=== PATIENT | female | born 1955 | race Caucasian/White ===

== ENCOUNTER 2016-08-12 22:36 | Emergency (ER) | payer OTHER ==
[~2016-08-12] VITALS: Ht 157.5 cm; Wt 82.0 kg
[2016-08-12 23:00] VITALS: Ht 157.5 cm; Wt 82.0 kg
[2016-08-12] MEDS ORDERED: CARV25TA79 PO (23:19)
[2016-08-12] MEDS ORDERED: SPIR25TA PO (23:19)
[2016-08-12] MEDS ORDERED: METF1000 PO (23:20)
[2016-08-12] MEDS ORDERED: SITA100T8 PO (23:20)
[2016-08-12] MEDS ORDERED: CLOP75TA27 PO (23:20)
[2016-08-12] MEDS ORDERED: GLIM4TAB55 PO (23:21)
[2016-08-12] MEDS ORDERED: MECL-77 PO (23:21)
[2016-08-12] MEDS ORDERED: ALBU2.5V3 NEB (23:22)
[2016-08-12] MEDS ORDERED: LANT3I SC (23:22)
[2016-08-12] MEDS ORDERED: ALBU18HF INHALATION (23:22)
[2016-08-13] MEDS ORDERED: SODIUM CHLORIDE 0.9% 1L BAG IV* STA (00:11)
[2016-08-13] MEDS ORDERED: ALBUTEROL 0.5% (NEB) 2.5 MG/0.5 ML AMP INH STA ×2 (00:11→02:10)
[2016-08-13] MEDS ORDERED: CEFTRIAXONE 1 GM/50 ML (PMX) 50 ML IVPB ONE (00:30)
[2016-08-13] MEDS ORDERED: IBUPROFEN 600 MG TAB PO ONE (00:30)
[2016-08-13] MEDS ORDERED: AZITHROMYCIN 500MG/NS (PMX) 250 ML IVPB ONE (00:30)
--- NOTE | 2016-08-13 00:47 | RADRPT ---
PROCEDURE: XR Chest. CLINICAL INDICATION: Possible sepsis. TECHNIQUE: Portable AP upright view of the chest was obtained. COMPARISON: None. FINDINGS: The cardiomediastinal silhouette is within upper normal limits. The lungs are clear. There is no e vidence for pleural effusion, pneumothorax or pulmonary vascular congestion. The osseous structures are intact with no evidence for acute abnormality. [facility] the exam. RPTAT:HJJR IMPRESSION: No evidence for acute intrathoracic pathology. Physician Joss Date Time Electronically viewed and signed by Physician Joss on 08/13/2016 00:47 JR/
[2016-08-13 01:02] LABS: ALBUMIN 4.3 g/dl (3.3-4.9); CHLORIDE 98 mmol/L (97-110)
[2016-08-13 01:03] LABS: POTASSIUM 4.4 mmol/L (3.5-5.1); SODIUM 140 mmol/L (135-144)
[2016-08-13 01:05] LABS: ALANINE AMINOTRANSFERASE 29 IU/L (13-69); ALBUMIN/GLOBULIN RATIO 1.43; ALKALINE PHOSPHATASE 113 IU/L (42-121); ANION GAP 19 (8-16); ASPARTATE AMINO TRANSFERASE 17 IU/L (15-46); BILIRUBIN,INDIRECT 0.3 mg/dl (0-1.1); BILIRUBIN,TOTAL 0.3 mg/dl (0.2-1.3); BLOOD UREA NITROGEN 10 mg/dl (7-20); CARBON DIOXIDE 27 mmol/L (21-31); CREATININE 0.82 mg/dl (0.44-1.00); GLUCOSE 175 mg/dl (70-220); TOTAL PROTEIN 7.3 g/dl (6.1-8.1)
[2016-08-13 01:06] LABS: CALCIUM 9.9 mg/dl (8.4-10.2)
[2016-08-13 01:14] LABS: B-TYPE NATRIURETIC PEPTIDE 125 PG/ML (0-125)
[2016-08-13 01:18] LABS: TROPONIN-I < 0.012 ng/ml (0.00-0.12)
[2016-08-13 01:20] LABS: RED BLOOD COUNT 5.32 10^6/ul (4.20-5.40); UNCORRECTED WBC 12.3 10^3/ul (4.8-10.8); WHITE BLOOD COUNT 12.3 10^3/ul (4.8-10.8)
[2016-08-13 01:21] LABS: BASOPHILS % 0.5 % (0.0-2.0); EOSINOPHILS % 5.6 % (0.0-7.0); HEMATOCRIT 45.8 % (37.0-47.0); INR 0.96; LYMPHOCYTES # 1.3 10^3/ul (0.8-2.9); LYMPHOCYTES % 10.2 % (15.0-51.0); MEAN CORPUSCULAR HEMOGLOBIN 28.2 pg (29.0-33.0); MEAN CORPUSCULAR HGB CONC 32.8 g/dl (32.0-37.0); MEAN CORPUSCULAR VOLUME 86.1 fl (82.0-101.0); MEAN PLATELET VOLUME 10.4 fl (7.4-10.4); MONOCYTES % 5.1 % (0.0-11.0); NEUTROPHIL # 9.6 10^3/ul (1.6-7.5); NEUTROPHILS % 78.3 % (39.0-77.0); PARTIAL THROMBOPLASTIN TIME 27.8 Sec (25.0-35.0); PLATELET COUNT 276 10^3/UL (140-440); PROTIME 12.8 Sec (12.2-14.2); RED CELL DISTRIBUTION WIDTH 39.8 % (11.5-14.5)
[2016-08-13 01:22] LABS: BASOPHIL # 0.1 10^3/ul (0.0-0.1); EOSINOPHILS # 0.7 10^3/ul (0.0-0.5); MONOCYTE # 0.6 10^3/ul (0.3-0.9)
[2016-08-13] MEDS ORDERED: OSELTAMIVIR 75 MG CAP PO ONE (02:00)
[2016-08-13] MEDS ORDERED: predniSONE 20 MG TAB PO ONE (02:00)
--- NOTE | 2016-08-13 02:09 | ERA ---
ER Documentation Chief Complaint Date/Time DATE: 08/13/16 TIME: 02:03 Chief Complaint sob w/ cough x 10 days, progressing, now abd bloating, diarrhea x 1 HPI 60-year-old woman brought in by family members for complaints of cough and shortness of breath 1 week. She has had tactile fevers at home and denies recent antibiotic use. Patient states she does have a history of asthma and has been using her albuterol pump at home without relief. She denies chest pain , no calf or leg swelling, no vomiting or diarrhea, no headache or blurry vision. Patient denies recent long distance travel or previous blood clots. ROS All systems reviewed and are negative except as per history of present illness. Medications Home Meds Reported Medications Albuterol Sulfate* (Albuterol Sulfate* Neb) 0.083%-3 Ml Neb, 2.5 MG NEB Q3H Y for WHEEZING AND SOB, #30 VIAL 08/12/16 Albuterol Sulfate* (Ventolin HFA*) 18 Gm Hfa.aer.ad, 2 PUFF INHALATION Q6H, #1 INHALER 08/12/16 Insulin Glargine* (Lantus*) 100 Unit/Ml Soln, 40 UNIT SC QHS, #1 VIAL 08/12/16 Glimepiride* (Amaryl*) 4 Mg Tablet, 4 MG PO WITH BREAKFAST DINNE, TAB 08/12/16 Meclizine Hcl* (Meclizine Hcl*) 25 Mg Tablet, 25 MG PO DAILY Y for DIZZINESS, TAB 08/12/16 Metformin Hcl* (Metformin Hcl*) 1,000 Mg Tablet, 1000 MG PO WITH BREAKFAST DINNE , #60 TAB 08/12/16 Sitagliptin* (Januvia*) 100 Mg Tablet, 100 MG PO DAILY, #30 TAB 08/12/16 Clopidogrel Bisulfate (Clopidogrel) 75 Mg Tablet, 75 MG PO DAILY, #30 TAB 08/12/16 Carvedilol* (Carvedilol*) 25 Mg Tablet, 25 MG PO BID, #60 TAB 08/12/16 Spironolactone* (Aldactone*) 25 Mg Tablet, 25 MG PO DAILY, #30 TAB 08/12/16 Allergies Allergies: Coded Allergies: No Known Drug Allergies (Verified Allergy, Unknown, 08/12/16) PMhx/Soc Obesity, diabetes mellitus, hypertension, asthma, dyslipidemia, coronary artery disease, previous coronary artery stents, congestive heart failure Anesthesia Reaction: No Hx Neurological Disorder: No Hx Psychiatric Problems: No Hx Miscellaneous Medical Probl: Yes (high cholesterol, diabetes) Hx Alcohol Use: No Hx Substance Use: No Hx Tobacco Use: No Smoking Status: Never smoker FmHx Family History: coronary disease, No diabetes Physical Exam Vitals Vital Signs Date Time Temp Pulse Resp B/P Pulse Ox O2 Delivery O2 Flow Rate FiO2 08/13/16 02:15 100 30 92 Nasal Cannula 2.0 28 08/13/16 01:59 99.2 08/13/16 00:15 92 34 95 Nasal Cannula 28 08/12/16 23:04 Nasal Cannula 08/12/16 23:00 100.1 93 24 150/76 96 Physical Exam GENERAL: Well-developed, well-nourished, well-hydrated, in no apparent distress , looks nontoxic in appearance HEENT: Moist mucous membranes, pink conjunctiva, no cervical spine tenderness or step-off deformities, no goiter, no jaundice or icterus, extraocular movements intact without pain. No submandibular induration, and no pharyngeal erythema NEURO: Alert and oriented 3, cranial nerves II through XII intact bilaterally, pupils equal round reactive to light, no focal deficits or facial asymmetry, sensation intact distally Strength 5/5 in upper and lower extremities bilaterally CARDIAC: Regular rate and rhythm, no murmurs rubs or gallops LUNGS: Bilateral wheezing, no crackles or stridor ABDOMEN: Soft nontender, no guarding, no rigidity, no rebound, no psoas sign no obturator sign. Normoactive bowel sounds SKIN: Warm and dry to touch, no abrasions, contusions, or hematomas, no lacerations, no ecchymosis, no target lesions, and without ulcers EXTREMITIES: No clubbing cyanosis or edema, calves are bilaterally symmetrical, no Homans sign, no popliteal cord sign. Distal pulses equal and bilateral PSYCH: Normal affect without agitation or irritability Result Diagram: 08/13/16 0002 08/13/16 0002 Results 24 hrs Laboratory Tests Test 08/13/16 00:02 Activated Partial Thromboplast Time 27.8Sec Alanine Aminotransferase (ALT/SGPT) 29IU/L Albumin 4.3g/dl Albumin/Globulin Ratio 1.43 Alkaline Phosphatase 113IU/L Anion Gap 19 Aspartate Amino Transf (AST/SGOT) 17IU/L B-Type Natriuretic Peptide 125PG/ML Basophils # 0.110^3/ul Basophils % 0.5% Blood Urea Nitrogen 10mg/dl Calcium Level 9.9mg/dl Carbon Dioxide Level 27mmol/L Chloride Level 98mmol/L Creatinine 0.82mg/dl Direct Bilirubin 0.00mg/dl Eosinophils # 0.710^3/ul Eosinophils % 5.6% Globulin 3.00g/dl Glucose Level 175mg/dl Hematocrit 45.8% Hemoglobin 15.0g/dl INR International Normalized Ratio 0.96 Indirect Bilirubin 0.3mg/dl Lactic Acid Level 2.6mmol/L Lipase 17U/L Lymphocytes # 1.310^3/ul Lymphocytes % 10.2% Mean Corpuscular Hemoglobin 28.2pg Mean Corpuscular Hemoglobin Concent 32.8g/dl Mean Corpuscular Volume 86.1fl Mean Platelet Volume 10.4fl Monocytes # 0.610^3/ul Monocytes % 5.1% Neutrophils # 9.610^3/ul Neutrophils % 78.3% Nucleated Red Blood Cells # 0.010^3/ul Nucleated Red Blood Cells % 0.0/100WBC Platelet Count 43541^3/UL Potassium Level 4.4mmol/L Prothrombin Time 12.8Sec Prothrombin Time Ratio 1.0 Red Blood Count 5.3210^6/ul Red Cell Distribution Width 39.8% Sodium Level 140mmol/L Total Bilirubin 0.3mg/dl Total Protein 7.3g/dl Troponin I < 0.012ng/ml White Blood Count 12.310^3/ul Current Medications Medications (Trade) Dose Ordered Sig/Raquel Route PRN Reason Start Time Stop Time Status Last Admin Dose Admin Sodium Chloride 1000 ml 1,000 ml BOLUS OVER 2 HOURS STAT IV* 08/13/16 00:11 08/13/16 00:14 DC 08/13/16 02:04 Ceftriaxone Sodium 50 ml @ 100 mls/hr ONCE ONCE IVPB 08/13/16 00:30 08/13/16 00:59 DC 08/13/16 02:04 Azithromycin (Zithromax 500mg/ NS (Pmx)) 250 ml @ 250 mls/hr ONCE ONCE IVPB 08/13/16 00:30 08/13/16 01:29 DC Albuterol (Proventil 0.5% (Neb)) 10 mg ONCE STAT INH 08/13/16 00:11 08/13/16 00:15 DC 08/13/16 00:18 Ibuprofen (Motrin) 600 mg ONCE ONCE PO 08/13/16 00:30 08/13/16 00:31 DC 08/13/16 02:12 Oseltamivir Phosphate (Tamiflu) 75 mg ONCE ONCE PO 08/13/16 02:00 08/13/16 02:01 DC 08/13/16 02:12 Prednisone (Prednisone) 40 mg ONCE ONCE PO 08/13/16 02:00 08/13/16 02:01 DC 08/13/16 02:12 Albuterol (Proventil 0.5% (Neb)) 10 mg ONCE STAT INH 08/13/16 02:10 08/13/16 02:11 DC 08/13/16 02:17 Procedures/MDM IV line was established patient was placed on student teacher rhythm strip revealed a sinus rhythm at about 90 bpm with upright P and T waves. Patient was febrile. Blood and urine cultures have been ordered results are pending I will follow-up. EKG performed, read by me revealed a normal sinus rhythm at 92 bpm, left axis deviation, narrow QRS complex, no concerning ST elevations or depressions noted. CBC was unremarkable, electrolytes normal, liver function tests are normal, troponin was negative. Lactic acid elevated at 2.6. One AP view of the chest performed, read by me reveals no acute infiltrates, normal mediastinum, sharp costophrenic and cardiac borders, no air under the diaphragm. Otherwise unremarkable chest x-ray. Patient is at risk for sepsis although given her strong CHF history I only treated her with 1 L of normal saline intravenously. Patient also received albuterol 10 mg via nebulizer, and prednisone 40 mg p.o. patient also received ibuprofen 600 mg p.o., ceftriaxone 1 g IV and azithromycin 500 mg IV 1. I treated her empirically with Tamiflu 75 mg p.o. pending influenza AB swabs. Influenza AB swabs negative. Patient's infectious symptoms have not stabilized and the patient is at risk of rapid decompensation. The patient will be admitted for careful hydration, antibiotic therapy, and infectious source control. Severe Sepsis Assessment: Infectious Source: Bronchitis End organ damage indicated by: Lactate > 2.0 mmol/L Acute Resp Failure (sat < 92% w/o oxygen) Severe Sepsis Managment: Blood Cultures X 2 before broad spectrum antibiotics initiated within 3 hours of recognition. 30 ml/kg NS bolus gave only 1 L due to strong CHF history Initial Lactate: 2.6 Repeat Lactate pending Critical Care: Time: 35 minutes Treatments/Evaluations: Emergent fluid management, while maintaining close respiratory support. Immediate broad spectrum antibiotic therapy. Simultaneous assessment for possible sources in order to direct therapy. Consideration for invasive and chemical support to prevent respiratory or cardiac collapse. Septic Shock Assessment (1 hour post 30 ml/kg fluid bolus): Hypotension (SBP < 90 or 40 mmHg drop, MAP < 65): No Lactic acid > 4.0 No Perfusion Reassessment for Septic Shock: Temp afebrile, pulse 90 RR 24, BP 120/80 Heart Exam: Regular rate and rhythm Lung Exam: Continued wheezing Capillary Refill: Less than 2 seconds Peripheral Pulses: Radially present Skin: Warm and dry Hypotensive Treatment (not required for isolated lactic acid elevation): Comfort Care: No Central LIne: Not indicated Vasopressor started: None I considered further perfusion assessment with CVP measurement, SCVO2, bedside ultrasound volume assessment, passive leg raise, trial of further fluid bolus, and preceded with gentle fluid hydration and IV antibiotics with oral Tamiflu Accepting Care Team: Current data and ongoing care discussed. Time: Time of admission Primary Provider: Hospital Consulting: Cardiology Outstanding Data: none Departure Diagnosis: Primary Impression: Sepsis Qualified Code: A41.9 - Sepsis, due to unspecified organism Additional Impressions: Asthma Qualified Code: J45.41 - Moderate persistent asthma with acute exacerbation Bronchitis Condition: Serious MURIEL FORREST MD Aug 13, 2016 02:09
[2016-08-13 05:37] VITALS: TEMP 99
[2016-08-13] MEDS ORDERED: NACL 0.9% 3 ML SYG IV SCH (07:30)
[2016-08-13] MEDS ORDERED: ALBUTEROL/IPRATROPIUM (NEB) 3 ML AMP HHN PRN (07:30)
[2016-08-13] MEDS ORDERED: ACETAMINOPHEN 325 MG TAB PO PRN (07:30)
[2016-08-13] MEDS ORDERED: ALBUTEROL 0.083% (NEB) 2.5 MG/3 ML AMP NEB PRN (07:30)
[2016-08-13] MEDS ORDERED: ONDANSETRON 4 MG INJ IV PRN (07:30)
[2016-08-13] MEDS ORDERED: MECLIZINE 25 MG TAB PO PRN (07:30)
[2016-08-13] MEDS ORDERED: ALBUTEROL HFA 8 GM INHALER INH SCH (08:00)
[2016-08-13] MEDS ORDERED: SPIRONOLACTONE 25 MG TAB PO SCH (09:00)
[2016-08-13] MEDS ORDERED: LEVOFLOXACIN 500MG/D5W (PMX) 100 ML IVPB SCH (09:00)
[2016-08-13] MEDS ORDERED: HEPARIN 5,000 UNIT/0.5 ML SYG SC SCH (09:00)
[2016-08-13] MEDS ORDERED: METHYLPREDNISOLONE 125 MG INJ IV SCH (09:00)
[2016-08-13] MEDS ORDERED: LINAGLIPTIN 5 MG TABLET PO SCH (09:00)
[2016-08-13] MEDS ORDERED: CLOPIDOGREL 75 MG TAB PO SCH (09:00)
--- NOTE | 2016-08-13 09:12 | HP ---
DATE OF ADMISSION: 08/12/2016 CHIEF COMPLAINT: Shortness of breath and cough. HISTORY OF PRESENT ILLNESS: The patient is a 60-year-old female with a history of CHF, hypertension , asthma, CAD status post stent placement, and history of kidney stone who presented to the emergenc y department with shortness of breath and cough. Her symptoms have been going on for over a week no w. She said that her cough has been dry for the most part but it was occasionally productive. She says she has been using her albuterol without significant improvement. She denied any chest pain, n ausea, vomiting, or palpitations, but she reported intermittent midepigastric abdominal pain. When she presented to the ER, she had a low-grade fever with a temperature of 100.1, heart rate 93, respiratory rate 24, blood pressure 150/76, oxygen saturation 96%. Laboratory value shows a WBC of 12.3. Otherwise, CBC and CMP are within acceptable range. Her initial lactate was 2.6. The second one was 1.6, and the third one was 1.1. Chest x-ray shows no evidence of acute intrathoracic patho logy. Chest x-ray was clear. Influenza was checked in the ER, and influenza A and B were negative. She was treated with albuterol, given prednisone 40 mg p.o. x1, and was started on ceftriaxone and Zithromax. She was also given Tamiflu. REVIEW OF SYSTEMS: A 12-point review was performed and negative except as mentioned in HPI. PAST MEDICAL HISTORY: As per HPI. PAST SURGICAL HISTORY: As per HPI. SOCIAL HISTORY: Denied a history of tobacco, alcohol, or illicit drug use. ALLERGIES: NO KNOWN DRUG ALLERGIES. HOME MEDICATIONS: 1. Albuterol. 2. Plavix. 3. Aldactone. 4. Meclizine. 5. Glimepiride. 6. Insulin. 7. Metformin. 8. Januvia. PHYSICAL EXAMINATION: VITAL SIGNS: Stable. GENERAL: Looks comfortable, alert and oriented, cooperative. HEENT: No obvious head deformity. Pupils are reactive to light. Extraocular muscles intact. CARDIOVASCULAR: Regular rate and rhythm. No extra heart sounds. LUNGS: There is scattered wheezing. ABDOMEN: Soft. There is some discomfort in the epigastric area with no guarding, no rigidity. EXTREMITIES: No edema. NEUROLOGIC: No focal deficits. LABORATORY DATA: Pertinent positives as mentioned in the HPI. IMAGING: Chest x-ray clear. Impression: 1. Asthma exacerbation. 2. Probable urinary tract infection. 3. History of congestive heart failure. 4. History of coronary artery disease with stent. 5. History of diabetes. 6. History of dyslipidemia. 7. History of hypertension. Currently, blood pressure within acceptable range. PLAN: Admit to telemetry unit. She will be placed on oxygen, bronchodilators, as well as steroids. We will also empirically put her on Levaquin. She will be continued with her home medication with adjustment as needed. Also, given cardiac history, we will consider obtaining a 2-D echo. Further workup and management per clinical course. Dictated By: SATNAM PUENTE/RAAD Conf#: [id number] DID#: [id number]
[2016-08-13 09:54] VITALS: BP 140/75; PULSE 86; RESP 18
--- NOTE | 2016-08-13 19:08 | DS ---
DATE OF ADMISSION: 08/12/2016 DATE OF DISCHARGE: 08/13/2016 The patient left AMA. DISCHARGE DIAGNOSES: 1. Asthma exacerbation. The patient was not seen by myself, as patient left against medical advice . 2. Possible sepsis. Once again, the patient left against medical advice. 3. History of congestive heart failure. HOSPITAL COURSE: The patient is a 60-year-old female with history of CHF, hypertension, asthma, cor onary artery disease, status post stent placement in the past. The patient presented with shortness of breath and cough. The patient had an admitting diagnosis of asthma exacerbation. The patient d id have elevated white blood cell count. Lactic acid was 2.6. T-max 100.1. Influenza was checked and was negative. The patient left AMA from the ER before I had a chance to see the patient. The p atient was admitted by turnstile collector. DISCHARGE CONDITION: The patient left AMA and I did not have a chance to evaluate the patient. MEDICATIONS: No new medications were prescribed. FOLLOWUP: No followup instructions given to the patient, as the patient left AMA. Dictated By: SUSANNE ESPINOZA MD BS/NTS Conf#: [id number] DID#: [id number]
[2016-08-13] MEDS ORDERED: INSULIN GLARGINE [LANtus] 3 ML PEN SC SCH (21:00)
== END 2016-08-13 10:39 | disposition left against medical advice (07) ==
LOC: E/R 22:36
DX: A41.9 Sepsis, unspecified organism (principal); I50.9 Heart failure, unspecified; I10 Essential (primary) hypertension; E11.9 Type 2 diabetes mellitus without complications; J45.41 Moderate persistent asthma with (acute) exacerbation; E66.9 Obesity, unspecified; Z79.4 Long term (current) use of insulin; Z79.84 Long term (current) use of oral hypoglycemic drugs; Z98.61 Coronary angioplasty status; Z68.33 Body mass index [BMI] 33.0-33.9, adult
CPT/HCPCS: 36415; 71010; 80053; 83605; 83690; 83880; 84484; 85025; 85610; 85730; 87040; 87400; 93005; 94644; 96374; 96375; J0696; J7030; J7512; Z7502; Z7610; J1815

== ENCOUNTER 2017-01-14 13:06 | Inpatient (IN) | payer OTHER ==
[~2017-01-14] VITALS: Ht 160 cm; Wt 77.1 kg
[~2017-01-14 13:06] MED LIST: ALBU18HF INHALATION; ALBU2.5V3 NEB; CARV25TA79 PO; CLOP75TA27 PO; GLIM4TAB55 PO; LANT3I SC; MECL-77 PO; METF1000 PO; SITA100T8 PO; SPIR25TA PO
[2017-01-14] MEDS ORDERED: ALBUTEROL 0.083% (NEB) 2.5 MG/3 ML AMP HHN STA ×2 (13:13→15:24)
[2017-01-14] MEDS ORDERED: ASPIRIN 325 MG TAB PO STA (13:13)
[2017-01-14] MEDS ORDERED: METHYLPREDNISOLONE 125 MG INJ IV ONE (13:30)
[2017-01-14] MEDS ORDERED: IPRATROPIUM (NEB) 0.5 MG/2.5 ML AMP HHN ONE (13:30)
[2017-01-14 13:33] LABS: BASOPHIL # 0.1 10^3/ul (0.0-0.1); BASOPHILS % 1.1 % (0.0-2.0); EOSINOPHILS # 1.4 10^3/ul (0.0-0.5); EOSINOPHILS % 13.9 % (0.0-7.0); HEMATOCRIT 43.3 % (37.0-47.0); HEMOGLOBIN 14.7 g/dl (12.0-16.0); LYMPHOCYTES # 2.5 10^3/ul (0.8-2.9); LYMPHOCYTES % 25.2 % (15.0-51.0); MEAN CORPUSCULAR HEMOGLOBIN 28.7 pg (29.0-33.0); MEAN CORPUSCULAR HGB CONC 33.9 g/dl (32.0-37.0); MEAN CORPUSCULAR VOLUME 84.4 fl (82.0-101.0); MEAN PLATELET VOLUME 10.3 fl (7.4-10.4); MONOCYTE # 0.6 10^3/ul (0.3-0.9); MONOCYTES % 5.9 % (0.0-11.0); NEUTROPHIL # 5.3 10^3/ul (1.6-7.5); NEUTROPHILS % 53.7 % (39.0-77.0); PLATELET COUNT 260 10^3/UL (140-415); RED BLOOD COUNT 5.13 10^6/ul (4.20-5.40); RED CELL DISTRIBUTION WIDTH 12.7 % (11.5-14.5); WHITE BLOOD COUNT 9.8 10^3/ul (4.8-10.8)
[2017-01-14 13:44] LABS: INR 0.99; PARTIAL THROMBOPLASTIN TIME 25.3 Sec (25.0-35.0); PROTIME 13.1 Sec (12.2-14.2)
[2017-01-14 13:50] LABS: ANION GAP 22 (8-16); BLOOD UREA NITROGEN 14 mg/dl (7-20); CARBON DIOXIDE 25 mmol/L (21-31); CHLORIDE 101 mmol/L (97-110); CREATININE 0.72 mg/dl (0.44-1.00); GLUCOSE 325 mg/dl (70-220); POTASSIUM 4.5 mmol/L (3.5-5.1); SODIUM 143 mmol/L (135-144)
[2017-01-14 14:01] LABS: B-TYPE NATRIURETIC PEPTIDE 57 PG/ML (0-125)
[2017-01-14 14:09] LABS: TROPONIN-I < 0.012 ng/ml (0.00-0.12)
--- NOTE | 2017-01-14 14:55 | RADRPT ---
PROCEDURE: XR Chest. CLINICAL INDICATION: Shortness of breath, cough, chest pain TECHNIQUE: Single frontal chest x-ray. COMPARISON: None. FINDINGS: The lungs are adequately expanded. There is similar appearance of the round opacity within the left upper to mid lung adjacent to the hilum measuring up to 4.5 cm. There is no focal consolidation, p leural effusion, or pneumothorax. The heart and mediastinal contours are unremarkable. Bones are unr emarkable. There are no acute fractures. RPTAT: QQ IMPRESSION: Similar appearance of the round 4.5 cm opacity within the left lung adjacent to the hilum. A follow -up CT chest with and without contrast is recommended for additional evaluation. Results were discussed with Dr. MARNIO at 01/14/2017 2:53:57 PM. .Carmen Salas MD, MD Date Time Electronically viewed and signed by .Carmen Salas MD, on 01/14/2017 14:55 .T/
[2017-01-14] MEDS ORDERED: AZIT250T6 PO (15:26)
[2017-01-14] MEDS ORDERED: MECL-77 PO (15:27)
[2017-01-14] MEDS ORDERED: VENL-42 PO (15:27)
[2017-01-14] MEDS ORDERED: TEMA15CA PO (15:28)
[2017-01-14] MEDS ORDERED: ERGO500037 PO (15:28)
[2017-01-14] MEDS ORDERED: MONT10TA21 PO (15:28)
[2017-01-14] MEDS ORDERED: ADV25050 INHALATION (15:31)
[2017-01-14] MEDS ORDERED: CYCL-319 PO (15:31)
[2017-01-14] MEDS ORDERED: ATOR40TA68 PO (15:32)
[2017-01-14] MEDS ORDERED: LOSA1TAB20 PO (15:32)
[2017-01-14] MEDS ORDERED: RANI150T5 PO (15:33)
[2017-01-14] MEDS ORDERED: ASPI-664 PO (15:33)
[2017-01-14] MEDS ORDERED: FENO134C PO (15:34)
[2017-01-14] MEDS ORDERED: AMLO-147 PO (15:34)
[2017-01-14] MEDS ORDERED: CELE200C PO (15:34)
[2017-01-14] MEDS ORDERED: ACETAMINOPHEN 325 MG TAB PO PRN ×2 (16:30→19:30)
[2017-01-14] MEDS ORDERED: ONDANSETRON 4 MG INJ IV PRN ×2 (16:30→19:30)
[2017-01-14 16:37] VITALS: TEMP 98.1
--- NOTE | 2017-01-14 16:47 | ERA ---
ER Documentation Chief Complaint Date/Time DATE: 01/14/17 TIME: 16:44 Chief Complaint sob x 2 day, cough, wheezing, paramedics admin 5mg albuterol HPI 61-year-old female with increasing shortness of breath for 2 days got much worse today, paramedics noticed wheezing and gave 5 mg of albuterol. Patient states that she still extremely short of breath. States she has chest discomfort but no pain. Has had some cough. Denies fever and chills. She does have a history of cardiac stents. ROS All systems reviewed and are negative except as per history of present illness. Medications Home Meds Reported Medications Amlodipine Besylate* (Amlodipine Besylate*) 10 Mg Tablet, 10 MG PO DAILY, #30 TAB 01/14/17 Celecoxib* (Celebrex*) 200 Mg Capsule, 200 MG PO DAILY, CAP 01/14/17 Fenofibrate, Micronized (Fenofibrate) 134 Mg Capsule, 134 MG PO DAILY, CAP 01/14/17 Ranitidine Hcl* (Ranitidine Hcl*) 150 Mg Tablet, 150 MG PO Q12, #60 TAB 01/14/17 Aspirin (Low Dose Aspirin) 81 Mg Tablet.dr, 81 MG PO DAILY, #30 TAB 01/14/17 Losartan-Hydrochlorothiazide (Losartan-HCTZ) 100-25 Mg Tab, 1 TAB PO DAILY, TAB 01/14/17 Atorvastatin* (Atorvastatin*) 40 Mg Tablet, 40 MG PO QHS, #30 TAB 01/14/17 Salmeterol Xinaf/Fluticasone* (Advair*) 250-50 Diskus Inhaler, 1 INH INHALATION BID, #1 INHALER 01/14/17 Cyclobenzaprine Hcl* (Cyclobenzaprine Hcl*) 10 Mg Tablet, 10 MG PO Q8 Y for MUSCLE SPASMS, #60 TAB 01/14/17 Temazepam* (Temazepam*) 15 Mg Capsule, 15 MG PO HS Y for INSOMNIA, CAP 01/14/17 Montelukast Sodium* (Singulair*) 10 Mg Tablet, 10 MG PO QHS, #30 TAB 01/14/17 Ergocalciferol (Vitamin D2) (VITAMIN D2) 50,000 Unit Capsule, 84624 UNIT PO EVERY SUNDAY, CAP 01/14/17 Meclizine Hcl* (Meclizine Hcl*) 25 Mg Tablet, 25 MG PO BID Y for DIZZINESS, TAB 01/14/17 Venlafaxine Hcl* (Venlafaxine Hcl ER*) 37.5 Mg Cap.er.24h, 37.5 MG PO DAILY, CAP 01/14/17 Azithromycin* (Azithromycin*) 250 Mg Tablet, 250 MG PO DAILY, #4 TAB started 01-11-17 for 5 days 01/14/17 Albuterol Sulfate* (Ventolin HFA*) 18 Gm Hfa.aer.ad, 2 PUFF INHALATION Q6H, #1 INHALER 08/12/16 Insulin Glargine* (Lantus*) 100 Unit/Ml Soln, 40 UNIT SC QHS, #1 VIAL 08/12/16 Glimepiride* (Amaryl*) 4 Mg Tablet, 4 MG PO WITH BREAKFAST DINNE, TAB 08/12/16 Metformin Hcl* (Metformin Hcl*) 1,000 Mg Tablet, 1000 MG PO WITH BREAKFAST DINNE , #60 TAB 08/12/16 Sitagliptin* (Januvia*) 100 Mg Tablet, 100 MG PO DAILY, #30 TAB 08/12/16 Clopidogrel Bisulfate (Clopidogrel) 75 Mg Tablet, 75 MG PO DAILY, #30 TAB 08/12/16 Carvedilol* (Carvedilol*) 25 Mg Tablet, 25 MG PO BID, #60 TAB 08/12/16 Spironolactone* (Aldactone*) 25 Mg Tablet, 25 MG PO DAILY, #30 TAB 08/12/16 Discontinued Reported Medications Albuterol Sulfate* (Albuterol Sulfate* Neb) 0.083%-3 Ml Neb, 2.5 MG NEB Q3H Y for WHEEZING AND SOB, #30 VIAL 08/12/16 Meclizine Hcl* (Meclizine Hcl*) 25 Mg Tablet, 25 MG PO DAILY Y for DIZZINESS, TAB 08/12/16 Allergies Allergies: Coded Allergies: No Known Drug Allergies (Verified Allergy, Unknown, 01/14/17) PMhx/Soc Anesthesia Reaction: No Hx Neurological Disorder: No Hx Psychiatric Problems: No Hx Miscellaneous Medical Probl: Yes (DM) Hx Alcohol Use: No Hx Substance Use: No Hx Tobacco Use: No Smoking Status: Never smoker Physical Exam Vitals Vital Signs Date Time Temp Pulse Resp B/P Pulse Ox O2 Delivery O2 Flow Rate FiO2 01/14/17 15:40 68 97 35 01/14/17 13:21 72 26 92 21 01/14/17 13:16 97.9 76 26 158/84 91 Physical Exam Const: [] Moderate distress, tachypneic Head: Atraumatic Eyes: Normal Conjunctiva ENT: Normal External Ears, Nose and Mouth. Neck: Full range of motion..~ No meningismus. Resp: Bilateral expiratory wheezing with decreased breath sounds throughout, tachypnea and some accessory muscle use Cardio: Regular rate and rhythm, no murmurs Abd: Soft, non tender, non distended. Normal bowel sounds Skin: No petechiae or rashes Back: No midline or flank tenderness Ext: No cyanosis, or edema Neur: Awake and alert Psych: Mildly anxious Result Diagram: 01/14/17 1318 01/14/17 1318 Results 24 hrs Laboratory Tests Test 01/14/17 13:18 White Blood Count 9.810^3/ul Red Blood Count 5.1310^6/ul Hemoglobin 14.7g/dl Hematocrit 43.3% Mean Corpuscular Volume 84.4fl Mean Corpuscular Hemoglobin 28.7pg Mean Corpuscular Hemoglobin Concent 33.9g/dl Red Cell Distribution Width 12.7% Platelet Count 99519^3/UL Mean Platelet Volume 10.3fl Neutrophils % 53.7% Lymphocytes % 25.2% Monocytes % 5.9% Eosinophils % 13.9% Basophils % 1.1% Nucleated Red Blood Cells % 0.0/100WBC Neutrophils # 5.310^3/ul Lymphocytes # 2.510^3/ul Monocytes # 0.610^3/ul Eosinophils # 1.410^3/ul Basophils # 0.110^3/ul Nucleated Red Blood Cells # 0.010^3/ul Prothrombin Time 13.1Sec Prothrombin Time Ratio 1.0 INR International Normalized Ratio 0.99 Activated Partial Thromboplast Time 25.3Sec Sodium Level 143mmol/L Potassium Level 4.5mmol/L Chloride Level 101mmol/L Carbon Dioxide Level 25mmol/L Anion Gap 22 Blood Urea Nitrogen 14mg/dl Creatinine 0.72mg/dl Glucose Level 325mg/dl Calcium Level 10.0mg/dl Troponin I < 0.012ng/ml B-Type Natriuretic Peptide 57PG/ML Current Medications Medications (Trade) Dose Ordered Sig/Raquel Route PRN Reason Start Time Stop Time Status Last Admin Dose Admin Aspirin (Aspirin) 325 mg ONCE STAT PO 01/14/17 13:13 01/14/17 13:15 DC 01/14/17 13:32 Albuterol (Proventil 0.083% (Neb)) 10 mg ONCE STAT HHN 01/14/17 13:13 01/14/17 13:15 DC 01/14/17 13:20 Ipratropium [place] (Atrovent 0.02% (Neb)) 1 mg ONCE ONCE HHN 01/14/17 13:30 01/14/17 13:31 DC 01/14/17 13:20 Methylprednisolone Sodium Succinate (Solu-Medrol) 125 mg ONCE ONCE IV 01/14/17 13:30 01/14/17 13:31 DC 01/14/17 13:32 Albuterol (Proventil 0.083% (Neb)) 7.5 mg ONCE STAT HHN 01/14/17 15:24 01/14/17 15:25 DC 01/14/17 15:51 Procedures/MDM 61-year-old female with severe refractory COPD exacerbation. Room air oxygen level was never obtained as patient arrived on oxygen and immediately began receiving breathing treatment and then to BiPAP. She is Archie received 5 mg in the paramedics and initial 10 mg breathing treatment 1 of Atrovent open up her lungs a little but she still had severe wheezing and tachypnea. Was placed on BiPAP and another breathing treatment was given through BiPAP. She received a total of 22.5 mg of albuterol and still had significant wheezing and shortness of breath. No elevated troponin and low concern for congestive heart failure in spite of her cardiac history. Condition is definitely improved. Patient is being admitted to telemetry. Spoke with Dr. Boyce who recommends admission to the panel. Dr. Casey is admitting. EKG interpretation: Normal sinus rhythm rate of 68, left axis deviation, no ST elevations or depressions concerning for acute ischemia however the patient does have inverted T waves in the lateral leads. Normal intervals. Chest x-ray interpretation: I see no acute process, no obvious infiltrate, no pulmonary edema, no pneumothorax, no fractures. There is a well-circumscribed left chest mass that was not mentioned on x-ray report in July which had the same mass present. manager solution interpretation: Sinus rhythm and occasional sinus tachycardia with no other arrhythmia CT chest with and without contrast: Study still pending to evaluate well- circumscribed left chest mass.. Critical care time 41 minutes: This includes treatment of severe COPD exacerbation, multiple doses of nebulized beta agonist, use of noninvasive positive pressure ventilation, consideration of invasive procedures, chart review, discussion with patient and admitting doctor, multiple visits patient's bedside to reassess status. This does not include any billable procedures Departure Diagnosis: Primary Impression: COPD, severe Additional Impressions: Respiratory failure Hyperglycemia due to type 2 diabetes mellitus Condition: Serious EMILIANO MARINO DO Jan 14, 2017 16:47
[2017-01-14] MEDS ORDERED: IOHEXOL 300MG/ML 150 ML BTL ONE (16:52)
[2017-01-14] MEDS ORDERED: SOD CHLORIDE 0.9% 100 ML ONE ×2 (16:52→16:59)
[2017-01-14] MEDS ORDERED: morphine 4 MG/ML VIAL IV STA (16:54)
[2017-01-14] MEDS ORDERED: IODIXANOL LOCM 100 ML BTL ONE (16:59)
[2017-01-14 17:30] VITALS: BP 135/78; PULSE 87; RESP 17
--- NOTE | 2017-01-14 17:45 | RADRPT ---
PROCEDURE: CT chest with contrast CLINICAL INDICATION: Chest pain TECHNIQUE: CT scan of the chest with and without contrast was performed . The patient was scanned following the uncomplicated intravenous administration of 80 cc Optiray-320 intravenous contrast. Coronal and sagittal images were reformatted. CTDI = 19.82 mGy; DLP = 622 mGy-cm COMPARISON: Chest radiograph 01/14/2017 and 08/13/2016 FINDINGS: Lungs, airway and pleura: The trachea and bronchi are patent as well as normal in caliber. In the l eft upper lobe, perihilar region there is a rounded 4.3 x 3.9 cm non-enhancing mass containing air b ronchograms and mucoid impaction. There are tree in bud nodules distal to this mass. Findings are suggestive of fungal infection. The pleural spaces are clear, without effusions. . Cardiovascular, mediastinum and rome: The heart is mildly enlarged. There is no evidence of perica rdial effusion. The thoracic aorta is normal in caliber without evidence of aneurysm or dissection. . The lymph nodes are normal in size, and no rome abnormality is present. The esophagus is normal in caliber. Musculoskeletal and soft tissues: Moderate to severe spondylosis of the thoracic spine is present w ithout fracture, lytic or blastic lesion. There is no evidence of chest wall abnormality. The axil handy regions are unremarkable. Visualized upper abdomen. No abnormality of significance is seen. RPTAT:HSM IMPRESSION: 1. In the left upper lobe, perihilar region there is a rounded 4.3 x 3.9 cm non-enhancing mass co ntaining air bronchograms and mucoid impaction. There are tree in bud nodules distal to this mass. Findings are suggestive of fungal infection. . 2. Recommend pulmonary follow-up, possible follow-up fungal titers and/bronchoscopy if clinically i ndicated.. .Ann Dupont MD, Date Time Electronically viewed and signed by .Ann Dupont MD, on 01/14/2017 17:44 .[email or web address]/
[2017-01-14 17:56] VITALS: Ht 160 cm; Wt 77.1 kg
[2017-01-14] MEDS ORDERED: NACL 0.9% 3 ML SYG IV SCH (19:30)
[2017-01-14] MEDS ORDERED: HYDROCODONE/APAP (5/325) TAB PO PRN (19:30)
[2017-01-14] MEDS ORDERED: morphine 2 MG INJ IV PRN (19:30)
[2017-01-14] MEDS ORDERED: ZOLPIDEM 5 MG TAB PO PRN (19:30)
[2017-01-14] MEDS ORDERED: DOCUSATE SODIUM 100 MG CAP PO PRN (19:30)
[2017-01-14 19:38] LABS: CREATINE KINASE 139 IU/L (23-200)
[2017-01-14 19:51] LABS: CK-MB 1.26 ng/ml (0.0-2.4)
[2017-01-14 19:55] LABS: TROPONIN-I < 0.012 ng/ml (0.00-0.12)
[2017-01-14 20:00] VITALS: PULSE 84
[2017-01-14 20:07] VITALS: BP 171/80; RESP 17
[2017-01-14 20:15] VITALS: BP 141/70; RESP 20
[2017-01-14] MEDS: ALBUTEROL/IPRATROPIUM (NEB) 3 ML AMP HHN PRN (20:15)
[2017-01-14] MEDS ORDERED: CYCLOBENZAPRINE 10 MG TAB PO PRN (20:30)
[2017-01-14] MEDS ORDERED: AZITHROMYCIN 250 MG TAB PO SCH (20:30)
[2017-01-14] MEDS ORDERED: MECLIZINE 25 MG TAB PO PRN (20:30)
[2017-01-14] MEDS ORDERED: GUAIFENESIN/CODEINE 5ML CUP PO PRN (20:30)
[2017-01-14] MEDS: GUAIFENESIN/CODEINE 5ML CUP PO PRN (20:55)
[2017-01-14] MEDS ORDERED: GLUCOSE GEL 15 GRAM TUBE BUCCAL PRN (21:00)
[2017-01-14] MEDS ORDERED: GLUCOSE GEL 15 GRAM TUBE PO PRN ×2 (21:00)
[2017-01-14] MEDS: AZITHROMYCIN 250 MG TAB PO SCH (21:00)
[2017-01-14] MEDS ORDERED: GLUCAGON 1 MG INJ IM PRN (21:00)
[2017-01-14] MEDS ORDERED: DEXTROSE 50% 50 ML SYRINGE IV PRN ×2 (21:00)
[2017-01-14] MEDS: MONTELUKAST 10 MG TAB PO SCH (22:02)
[2017-01-14] MEDS: SALMETEROL/FLUTICASONE 250/50 INHA INH SCH (22:07)
[2017-01-14] MEDS: INSULIN GLARGINE [LANtus] 3 ML PEN SC SCH (22:14)
[2017-01-14] MEDS: INSULIN ASPART [NOVOLOG] 3 ML PEN SC SCH (22:21)
[2017-01-14] MEDS ORDERED: INSULIN LISPRO 100 UNIT/ML VIAL SC STA (22:21)
[2017-01-14] MEDS ORDERED: INSULIN ASPART [NOVOLOG] 3 ML PEN SC ONE (23:00)
[2017-01-15] VITALS (12 sets, daily range): BP systolic 112–152; BP diastolic 54–70; PULSE 68–103; RESP 16–18
[2017-01-15] MEDS: ACCU-CHEK XX SCH (02:00)
[2017-01-15] MEDS ORDERED: ACCU-CHEK XX SCH (02:00)
--- NOTE | 2017-01-15 05:59 | HP ---
Date/Time of Note Date/Time of Note DATE: 01/15/17 TIME: 05:48 Assessment/Plan VTE Prophylaxis VTE Prophylaxis Intervention: heparin Lines/Catheters IV [facility]from [facility] Saline Lock Urinary Cath still in place: No Assessment/Plan Assessment/Plan 1. COPD/asthma exacerbation -Bronchodilators, steroids, oxygen and antibiotics. Will place a pulmonary consult 2. Left upper lobe nonenhancing mass, likely fungal infection -We will treat with antibiotic and antifungal. -Will place a pulmonary and ID consult 3. Diabetes with hyperglycemia: -We will check A1c -Insulin while in-house 4. CAD with stent: no reported chest pain -Continue home medications 5. History of hypertension: Blood pressure within goal -Continue home medications with adjustment as needed. HPI/ROS Admit Date/Time Admit Date/Time Jan 14, 2017 at 16:11 Hx of Present Illness This is a 61-year-old female with a history of CAD with stent, asthma/COPD, diabetes, hypertension and CHF who presented to the emergency department complaining of cough and shortness of breath of 3 days duration. Cough is productive of whitish sputum which makes the shortness of breath worse. She also reported wheezing. Denied fever chills nausea vomiting or chest pain. Denied sick contacts or recent travel. Patient was last admitted here for asthma/COPD exacerbation in July of this year but she left AMA. When she presented to the ER today, vitals were stable and except glucose of around 320, basic labs were also stable. CXR showed Similar appearance of the round 4.5 cm opacity within the left lung adjacent to the hilum. CT chest shows left upper lobe 4.3 x 3.9 cm nonenhancing mass and tree-in-bud nodules distal to the mass. According to radiology findings are suggestive of fungal infection. She was treated with bronchodilators and steroids while in the ER. Patient does have audible wheezing even without using a stethoscope. . PMH/Family/Social Social History Smoking Status: Former smoker Exam/Review of Systems Vital Signs Vitals Vital Signs Date Time Temp Pulse Resp B/P Pulse Ox O2 Delivery O2 Flow Rate FiO2 01/15/17 04:52 98.1 98 16 130/66 98 01/14/17 21:00 Nasal Cannula 2.0 01/14/17 15:40 35 Exam Constitutional: alert, oriented, well developed Head: atraumatic, normocephalic Eyes: EOMI, PERRL Respiratory: wheezing Cardiovascular: nl pulses, regular rate and rhythm Gastrointestinal: non-tender, soft Extremities: normal pulses Labs Result Diagram: 01/14/17 1318 01/14/17 1318 Medications Medications Current Medications Ondansetron HCl (Zofran Inj) 4 mg Q6H PRN IV NAUSEA AND/OR VOMITING; Start at 19:30 Acetaminophen (Tylenol Tab) 650 mg Q6H PRN PO PAIN LEVEL 1-3 OR FEVER; Start at 19:30 Acetaminophen/ Hydrocodone Bitart ([place] (5/325)) 1 tab Q6H PRN PO MODERATE PAIN LEVEL 4-6; Start 01/14/17 at 19:30 Morphine Sulfate (morphine) 2 mg Q4H PRN IV SEVERE PAIN LEVEL 7-10; Start 01/14 at 19:30 Docusate Sodium (Colace) 100 mg Q12H PRN PO CONSTIPATION; Start 01/14/17 at 19: 30 Zolpidem Tartrate (Ambien) 5 mg QHS PRN PO SLEEP Last administered on 22:07; Admin Dose 5 MG; Start 01/14/17 at 19:30 Amlodipine Besylate (Norvasc) 10 mg DAILY PO ; Start 01/15/17 at 09:00 Aspirin (Halfprin) 81 mg DAILY PO ; Start 01/15/17 at 09:00 Carvedilol (Coreg) 25 mg BID PO Last administered on 01/14/17 20:55; Admin Dose 25 MG; Start 01/14/17 at 21:00 Clopidogrel Bisulfate (plaVIX) 75 mg DAILY PO ; Start 01/15/17 at 09:00 Cyclobenzaprine HCl (Flexeril) 10 mg Q8 PRN PO MUSCLE SPASMS Last administered on 01/14/17 22:07; Admin Dose 10 MG; Start 01/14/17 at 20:30 Insulin Glargine (Lantus) 40 unit QHS SC Last administered on 01/14/17 22:14; Admin Dose 40 UNIT; Start 01/14/17 at 21:00 Meclizine HCl (Antivert) 25 mg BID PRN PO DIZZINESS; Start 01/14/17 at 20:30 Montelukast Sodium (Singulair) 10 mg QHS PO Last administered on 01/14/17 22: 02; Admin Dose 10 MG; Start 01/14/17 at 21:00 Salmeterol Xinafoate/ Fluticasone (Advair 250/50 Diskus) 1 inh BID INH Last administered on 01/14/17 22:07; Admin Dose 1 INH; Start 01/14/17 at 21:00 Spironolactone (Aldactone) 25 mg DAILY PO ; Start 01/15/17 at 09:00 Venlafaxine HCl (Effexor Xr) 37.5 mg DAILY PO ; Start 01/15/17 at 09:00 Famotidine (Pepcid) 20 mg DAILY PO ; Start 01/15/17 at 09:00 Diagnostic Test (Pha) (Accu-Chek) 1 ea 02 XX ; Start 01/15/17 at 02:00 Guaifenesin/ Codeine Phosphate (Robitussin Ac Liquid Cup) 10 ml Q4H PRN PO COUGH Last administered on 01/14/17 20:55; Admin Dose 10 ML; Start 01/14/17 at 21:00 Miscellaneous Information 1 ea NOTE XX ; Start 01/14/17 at 21:00 Glucose (Glutose) 15 gm Q15M PRN PO DECREASED GLUCOSE; Start 01/14/17 at 21:00 Glucose (Glutose) 22.5 gm Q15M PRN PO DECREASED GLUCOSE; Start 01/14/17 at 21: 00 Dextrose (D50w Syringe) 25 ml Q15M PRN IV DECREASED GLUCOSE; Start 01/14/17 at 21:00 Dextrose (D50w Syringe) 50 ml Q15M PRN IV DECREASED GLUCOSE; Start 01/14/17 at 21:00 Glucagon (Glucagen) 1 mg Q15M PRN IM DECREASED GLUCOSE; Start 01/14/17 at 21:00 Glucose (Glutose) 15 gm Q15M PRN BUCCAL DECREASED GLUCOSE; Start 01/14/17 at 21 :00 Azithromycin 250 mg 250 mg DAILY PO ; Start 01/14/17 at 21:00 Ceftriaxone Sodium 50 ml @ 100 mls/hr Q24H IVPB ; Start 01/15/17 at 06:00 Voriconazole/ Dextrose (Vfend Iv/D5W) 100 ml @ 50 mls/hr Q12 IVPB ; Start 01/15 at 09:00 SATNAM KASPER MD Jan 15, 2017 05:59
[2017-01-15] MEDS: CEFTRIAXONE 1 GM/50 ML (PMX) 50 ML IVPB SCH (06:32)
[2017-01-15 07:19] LABS: BASOPHILS % 0.3 % (0.0-2.0); EOSINOPHILS % 0.1 % (0.0-7.0); HEMATOCRIT 42.1 % (37.0-47.0); HEMOGLOBIN 14.6 g/dl (12.0-16.0); LYMPHOCYTES # 1.5 10^3/ul (0.8-2.9); LYMPHOCYTES % 13.3 % (15.0-51.0); MEAN CORPUSCULAR HEMOGLOBIN 29.4 pg (29.0-33.0); MEAN CORPUSCULAR HGB CONC 34.7 g/dl (32.0-37.0); MEAN CORPUSCULAR VOLUME 84.7 fl (82.0-101.0); MEAN PLATELET VOLUME 10.4 fl (7.4-10.4); MONOCYTE # 0.3 10^3/ul (0.3-0.9); MONOCYTES % 2.2 % (0.0-11.0); NEUTROPHIL # 9.5 10^3/ul (1.6-7.5); NEUTROPHILS % 83.7 % (39.0-77.0); PLATELET COUNT 287 10^3/UL (140-415); RED BLOOD COUNT 4.97 10^6/ul (4.20-5.40); RED CELL DISTRIBUTION WIDTH 12.4 % (11.5-14.5); WHITE BLOOD COUNT 11.4 10^3/ul (4.8-10.8)
[2017-01-15 07:34] LABS: CALCIUM 10.4 mg/dl (8.4-10.2); CHOL/HDL RATIO 5.8 RATIO; CREATININE 0.67 mg/dl (0.44-1.00); MAGNESIUM 1.6 mg/dl (1.7-2.5); PHOSPHORUS 4.1 mg/dl (2.5-4.9); POTASSIUM 4.5 mmol/L (3.5-5.1)
[2017-01-15 07:45] LABS: CK-MB 1.15 ng/ml (0.0-2.4); CREATINE KINASE 102 IU/L (23-200)
[2017-01-15 07:49] LABS: TROPONIN-I < 0.012 ng/ml (0.00-0.12)
[2017-01-15] MEDS ORDERED: GLIMEPIRIDE 4 MG TAB PO SCH (08:00)
[2017-01-15] MEDS: INSULIN ASPART [NOVOLOG] 3 ML PEN SC SCH ×4 (08:18→21:23)
[2017-01-15] MEDS ORDERED: DEXTROSE 5% IVPB SCH (09:00)
[2017-01-15] MEDS ORDERED: VORICONAZOLE IVPB SCH (09:00)
[2017-01-15] MEDS: FAMOTIDINE 20 MG TAB PO SCH (09:33)
[2017-01-15] MEDS: AZITHROMYCIN 250 MG TAB PO SCH (09:33)
[2017-01-15] MEDS: VENLAFAXINE (XR) 37.5 MG CAP PO SCH (09:33)
[2017-01-15] MEDS: AMLODIPINE 10 MG TAB PO SCH (09:33)
[2017-01-15] MEDS: SPIRONOLACTONE 25 MG TAB PO SCH (09:33)
[2017-01-15] MEDS: ASPIRIN (EC) 81 MG TAB PO SCH (09:33)
[2017-01-15] MEDS: GUAIFENESIN/CODEINE 5ML CUP PO PRN ×3 (09:34→17:15)
[2017-01-15] MEDS: CLOPIDOGREL 75 MG TAB PO SCH (09:34)
[2017-01-15] MEDS: SALMETEROL/FLUTICASONE 250/50 INHA INH SCH ×2 (09:37→21:23)
[2017-01-15] MEDS: ALBUTEROL/IPRATROPIUM (NEB) 3 ML AMP HHN PRN (13:18)
--- NOTE | 2017-01-15 14:44 | PN ---
Date/Time of Note Date/Time of Note DATE: 01/15/17 TIME: 14:43 Assessment/Plan VTE Prophylaxis VTE Prophylaxis Intervention: LMWH Lines/Catheters IV [facility] Type (from [facility] Saline Lock Urinary Cath still in place: No Assessment/Plan Chief Complaint/Hosp Course 61 yo female wtih reported history of asthma who presents with coughing fits causing SOB. Found to have lingular lung mass - Mass requires biopsy, Dr Green from pulmonary consulted - Very low liklihood of fungal pneumonia, will discontinue caspofungin - Also doubt this is a bacterial pneumonia but can continue empiric course of ceftriaxone. If no improvemtn by 48 hours would discontinue abx entirely - MTB is a consideration though radiographically not typical and no constitutional symptoms - Concern for malignancy, bronch vs VATS Problems: Subjective 24 Hr Interval Summary Free Text/Dictation Complains of frequent coughing fits causing SOB. Cough nonproductive. No fevers Exam/Review of Systems Vital Signs Vitals Vital Signs Date Time Temp Pulse Resp B/P Pulse Ox O2 Delivery O2 Flow Rate FiO2 01/15/17 13:19 75 20 95 Nasal Cannula 2.0 01/15/17 11:53 98.3 112/54 01/14/17 15:40 35 Exam Appears well, nontoxic Aox3 Comfortable respiratory status Scattered expiratory wheeze b/l, normal expiratory phase No edema RRR Results Result Diagram: 01/15/17 0632 01/15/17 0633 Results 24 hrs Laboratory Tests Test 01/14/17 18:54 01/14/17 22:00 01/15/17 02:39 01/15/17 06:32 Creatine Kinase 139 Creatine Kinase Index 0.9 Creatinine Kinase MB (Mass) 1.26 Troponin I < 0.012 Bedside Glucose 353 H 308 H White Blood Count 11.4 H Red Blood Count 4.97 Hemoglobin 14.6 Hematocrit 42.1 Mean Corpuscular Volume 84.7 Mean Corpuscular Hemoglobin 29.4 Mean Corpuscular Hemoglobin Concent 34.7 Red Cell Distribution Width 12.4 Platelet Count 287 Mean Platelet Volume 10.4 Neutrophils % 83.7 H Lymphocytes % 13.3 L Monocytes % 2.2 Eosinophils % 0.1 Basophils % 0.3 Nucleated Red Blood Cells % 0.0 Neutrophils # 9.5 H Lymphocytes # 1.5 Monocytes # 0.3 Eosinophils # 0.0 Basophils # 0.0 Nucleated Red Blood Cells # 0.0 Hemoglobin A1c 10.4 H Test 01/15/17 06:33 01/15/17 08:15 01/15/17 12:08 Sodium Level 142 Potassium Level 4.5 Chloride Level 102 Carbon Dioxide Level 24 Anion Gap 21 H Blood Urea Nitrogen 18 Creatinine 0.67 Glucose Level 303 H Calcium Level 10.4 H Phosphorus Level 4.1 Magnesium Level 1.6 L Creatine Kinase 102 Creatine Kinase Index 1.1 Creatinine Kinase MB (Mass) 1.15 Troponin I < 0.012 Triglycerides Level 163 H Cholesterol Level 233 H LDL Cholesterol, Calculated 160 HDL Cholesterol 40 Cholesterol/HDL Ratio 5.8 Bedside Glucose 278 H 267 H Medications Medications Current Medications Ondansetron HCl (Zofran Inj) 4 mg Q6H PRN IV NAUSEA AND/OR VOMITING; Start at 19:30 Acetaminophen (Tylenol Tab) 650 mg Q6H PRN PO PAIN LEVEL 1-3 OR FEVER; Start at 19:30 Acetaminophen/ Hydrocodone Bitart ([place] (5/325)) 1 tab Q6H PRN PO MODERATE PAIN LEVEL 4-6; Start 01/14/17 at 19:30 Morphine Sulfate (morphine) 2 mg Q4H PRN IV SEVERE PAIN LEVEL 7-10; Start 01/14 at 19:30 Docusate Sodium (Colace) 100 mg Q12H PRN PO CONSTIPATION; Start 01/14/17 at 19: 30 Zolpidem Tartrate (Ambien) 5 mg QHS PRN PO SLEEP Last administered on 22:07; Admin Dose 5 MG; Start 01/14/17 at 19:30 Amlodipine Besylate (Norvasc) 10 mg DAILY PO Last administered on 01/15/17 09: 33; Admin Dose 10 MG; Start 01/15/17 at 09:00 Aspirin (Halfprin) 81 mg DAILY PO Last administered on 01/15/17 09:33; Admin Dose 81 MG; Start 01/15/17 at 09:00 Carvedilol (Coreg) 25 mg BID PO Last administered on 01/15/17 09:34; Admin Dose 25 MG; Start 01/14/17 at 21:00 Clopidogrel Bisulfate (plaVIX) 75 mg DAILY PO Last administered on 01/15/17 09 :34; Admin Dose 75 MG; Start 01/15/17 at 09:00 Cyclobenzaprine HCl (Flexeril) 10 mg Q8 PRN PO MUSCLE SPASMS Last administered on 01/14/17 22:07; Admin Dose 10 MG; Start 01/14/17 at 20:30 Insulin Glargine (Lantus) 40 unit QHS SC Last administered on 01/14/17 22:14; Admin Dose 40 UNIT; Start 01/14/17 at 21:00 Meclizine HCl (Antivert) 25 mg BID PRN PO DIZZINESS; Start 01/14/17 at 20:30 Montelukast Sodium (Singulair) 10 mg QHS PO Last administered on 01/14/17 22: 02; Admin Dose 10 MG; Start 01/14/17 at 21:00 Salmeterol Xinafoate/ Fluticasone (Advair 250/50 Diskus) 1 inh BID INH Last administered on 01/15/17 09:37; Admin Dose 1 INH; Start 01/14/17 at 21:00 Spironolactone (Aldactone) 25 mg DAILY PO Last administered on 01/15/17 09:33 ; Admin Dose 25 MG; Start 01/15/17 at 09:00 Venlafaxine HCl (Effexor Xr) 37.5 mg DAILY PO Last administered on 01/15/17 09 :33; Admin Dose 37.5 MG; Start 01/15/17 at 09:00 Famotidine (Pepcid) 20 mg DAILY PO Last administered on 01/15/17 09:33; Admin Dose 20 MG; Start 01/15/17 at 09:00 Diagnostic Test (Pha) (Accu-Chek) 1 ea 02 XX Last administered on 01/15/17 02: 00; Admin Dose 1 EA; Start 01/15/17 at 02:00 Guaifenesin/ Codeine Phosphate (Robitussin Ac Liquid Cup) 10 ml Q4H PRN PO COUGH Last administered on 01/15/17 13:20; Admin Dose 10 ML; Start 01/14/17 at 21:00 Miscellaneous Information 1 ea NOTE XX ; Start 01/14/17 at 21:00 Glucose (Glutose) 15 gm Q15M PRN PO DECREASED GLUCOSE; Start 01/14/17 at 21:00 Glucose (Glutose) 22.5 gm Q15M PRN PO DECREASED GLUCOSE; Start 01/14/17 at 21: 00 Dextrose (D50w Syringe) 25 ml Q15M PRN IV DECREASED GLUCOSE; Start 01/14/17 at 21:00 Dextrose (D50w Syringe) 50 ml Q15M PRN IV DECREASED GLUCOSE; Start 01/14/17 at 21:00 Glucagon (Glucagen) 1 mg Q15M PRN IM DECREASED GLUCOSE; Start 01/14/17 at 21:00 Glucose (Glutose) 15 gm Q15M PRN BUCCAL DECREASED GLUCOSE; Start 01/14/17 at 21 :00 Azithromycin 250 mg 250 mg DAILY PO Last administered on 01/15/17 09:33; Admin Dose 250 MG; Start 01/14/17 at 21:00 Ceftriaxone Sodium 50 ml @ 100 mls/hr Q24H IVPB Last administered on 06:32; Admin Dose 100 MLS/HR; Start 01/15/17 at 06:00 Voriconazole/ Dextrose (Vfend Iv/D5W) 100 ml @ 50 mls/hr Q12 IVPB Last administered on 01/15/17 09:36; Admin Dose 50 MLS/HR; Start 01/15/17 at 09:00 MICAH THOMPSON MD Jan 15, 2017 14:44
--- NOTE | 2017-01-15 16:18 | CONS ---
Date/Time of Note Date/Time of Note DATE: 01/15/17 TIME: 16:14 Consult Date/Type/Reason Admit Date/Time Jan 14, 2017 at 16:11 Type of Consultation: Pulmonary Reason for Consultation Cough Subjective 61-year-old Palestinian lady known to have a left upper lobe/hilar mass for the past 5 years. The last one year she has been followed by Dr Saucedo at [facility] in [place]. She is pending resection of this left upper lobe mass that she states had previously had a biopsy of which was consistent with a diagnosis of hematoma. She presents this time to us with increasing cough and congestion but denies any fever chills no chest pain or palpitations no orthopnea PND. No hemoptysis hematemesis she denies any weight loss. She is a non-smoker. She has appointments to see her cops and a cardiothoracic surgeon per family. Objective Vital Signs Date Time Temp Pulse Resp B/P Pulse Ox O2 Delivery O2 Flow Rate FiO2 01/15/17 15:53 98.3 72 18 117/57 90 01/15/17 13:19 Nasal Cannula 2.0 01/14/17 15:40 35 Exam GENERAL: Well-nourished well-developed Palestinian lady comfortable at rest VITAL SIGNS: per chart NECK: Supple. No JVD or lymphadenopathy. CARDIAC EXAM: S1, S2. No added sounds or murmurs. CHEST: clear bilaterally, No added sounds, rales or wheezes ABDOMEN: Soft, nontender. No guarding or rebound. EXTREMITIES: No cyanosis, clubbing or edema. NEUROLOGIC: Generalized weakness. No focal deficits. Results/Medications Result Diagram: 01/15/17 0632 01/15/17 0633 Results 24 hrs Laboratory Tests Test 01/14/17 18:54 01/14/17 22:00 01/15/17 02:39 01/15/17 06:32 Creatine Kinase 139 Creatine Kinase Index 0.9 Creatinine Kinase MB (Mass) 1.26 Troponin I < 0.012 Bedside Glucose 353 H 308 H White Blood Count 11.4 H Red Blood Count 4.97 Hemoglobin 14.6 Hematocrit 42.1 Mean Corpuscular Volume 84.7 Mean Corpuscular Hemoglobin 29.4 Mean Corpuscular Hemoglobin Concent 34.7 Red Cell Distribution Width 12.4 Platelet Count 287 Mean Platelet Volume 10.4 Neutrophils % 83.7 H Lymphocytes % 13.3 L Monocytes % 2.2 Eosinophils % 0.1 Basophils % 0.3 Nucleated Red Blood Cells % 0.0 Neutrophils # 9.5 H Lymphocytes # 1.5 Monocytes # 0.3 Eosinophils # 0.0 Basophils # 0.0 Nucleated Red Blood Cells # 0.0 Hemoglobin A1c 10.4 H Test 01/15/17 06:33 01/15/17 08:15 01/15/17 12:08 Sodium Level 142 Potassium Level 4.5 Chloride Level 102 Carbon Dioxide Level 24 Anion Gap 21 H Blood Urea Nitrogen 18 Creatinine 0.67 Glucose Level 303 H Calcium Level 10.4 H Phosphorus Level 4.1 Magnesium Level 1.6 L Creatine Kinase 102 Creatine Kinase Index 1.1 Creatinine Kinase MB (Mass) 1.15 Troponin I < 0.012 Triglycerides Level 163 H Cholesterol Level 233 H LDL Cholesterol, Calculated 160 HDL Cholesterol 40 Cholesterol/HDL Ratio 5.8 Bedside Glucose 278 H 267 H Medications Current Medications Ondansetron HCl (Zofran Inj) 4 mg Q6H PRN IV NAUSEA AND/OR VOMITING; Start at 19:30 Acetaminophen (Tylenol Tab) 650 mg Q6H PRN PO PAIN LEVEL 1-3 OR FEVER; Start at 19:30 Acetaminophen/ Hydrocodone Bitart ([place] (5/325)) 1 tab Q6H PRN PO MODERATE PAIN LEVEL 4-6; Start 01/14/17 at 19:30 Morphine Sulfate (morphine) 2 mg Q4H PRN IV SEVERE PAIN LEVEL 7-10; Start 01/14 at 19:30 Docusate Sodium (Colace) 100 mg Q12H PRN PO CONSTIPATION; Start 01/14/17 at 19: 30 Zolpidem Tartrate (Ambien) 5 mg QHS PRN PO SLEEP Last administered on 22:07; Admin Dose 5 MG; Start 01/14/17 at 19:30 Amlodipine Besylate (Norvasc) 10 mg DAILY PO Last administered on 01/15/17 09: 33; Admin Dose 10 MG; Start 01/15/17 at 09:00 Aspirin (Halfprin) 81 mg DAILY PO Last administered on 01/15/17 09:33; Admin Dose 81 MG; Start 01/15/17 at 09:00 Carvedilol (Coreg) 25 mg BID PO Last administered on 01/15/17 09:34; Admin Dose 25 MG; Start 01/14/17 at 21:00 Clopidogrel Bisulfate (plaVIX) 75 mg DAILY PO Last administered on 01/15/17 09 :34; Admin Dose 75 MG; Start 01/15/17 at 09:00 Cyclobenzaprine HCl (Flexeril) 10 mg Q8 PRN PO MUSCLE SPASMS Last administered on 01/14/17 22:07; Admin Dose 10 MG; Start 01/14/17 at 20:30 Insulin Glargine (Lantus) 40 unit QHS SC Last administered on 01/14/17 22:14; Admin Dose 40 UNIT; Start 01/14/17 at 21:00 Meclizine HCl (Antivert) 25 mg BID PRN PO DIZZINESS; Start 01/14/17 at 20:30 Montelukast Sodium (Singulair) 10 mg QHS PO Last administered on 01/14/17 22: 02; Admin Dose 10 MG; Start 01/14/17 at 21:00 Salmeterol Xinafoate/ Fluticasone (Advair 250/50 Diskus) 1 inh BID INH Last administered on 01/15/17 09:37; Admin Dose 1 INH; Start 01/14/17 at 21:00 Spironolactone (Aldactone) 25 mg DAILY PO Last administered on 01/15/17 09:33 ; Admin Dose 25 MG; Start 01/15/17 at 09:00 Venlafaxine HCl (Effexor Xr) 37.5 mg DAILY PO Last administered on 01/15/17 09 :33; Admin Dose 37.5 MG; Start 01/15/17 at 09:00 Famotidine (Pepcid) 20 mg DAILY PO Last administered on 01/15/17 09:33; Admin Dose 20 MG; Start 01/15/17 at 09:00 Diagnostic Test (Pha) (Accu-Chek) 1 ea 02 XX Last administered on 01/15/17 02: 00; Admin Dose 1 EA; Start 01/15/17 at 02:00 Guaifenesin/ Codeine Phosphate (Robitussin Ac Liquid Cup) 10 ml Q4H PRN PO COUGH Last administered on 01/15/17 13:20; Admin Dose 10 ML; Start 01/14/17 at 21:00 Miscellaneous Information 1 ea NOTE XX ; Start 01/14/17 at 21:00 Glucose (Glutose) 15 gm Q15M PRN PO DECREASED GLUCOSE; Start 01/14/17 at 21:00 Glucose (Glutose) 22.5 gm Q15M PRN PO DECREASED GLUCOSE; Start 01/14/17 at 21: 00 Dextrose (D50w Syringe) 25 ml Q15M PRN IV DECREASED GLUCOSE; Start 01/14/17 at 21:00 Dextrose (D50w Syringe) 50 ml Q15M PRN IV DECREASED GLUCOSE; Start 01/14/17 at 21:00 Glucagon (Glucagen) 1 mg Q15M PRN IM DECREASED GLUCOSE; Start 01/14/17 at 21:00 Glucose (Glutose) 15 gm Q15M PRN BUCCAL DECREASED GLUCOSE; Start 01/14/17 at 21 :00 Azithromycin 250 mg 250 mg DAILY PO Last administered on 01/15/17 09:33; Admin Dose 250 MG; Start 01/14/17 at 21:00 Ceftriaxone Sodium (Rocephin) 50 ml @ 100 mls/hr Q24H IVPB Last administered on 01/15/17 06:32; Admin Dose 100 MLS/HR; Start 01/15/17 at 06:00 Assessment/Plan Chief Complaint/Hosp Course Assessment 1. 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 Chronic cough likely secondary to lung mass. 3. No evidence of postobstructive pneumonia Plan 1. agree with de-escalation of current antibiotics 2. Follow-up with primary cops and cardiothoracic surgery Problems: JOSSELYN GAMBINO MD, [facility] Jan 15, 2017 16:18
[2017-01-15] MEDS: INSULIN GLARGINE [LANtus] 3 ML PEN SC SCH (21:23)
[2017-01-15] MEDS: MONTELUKAST 10 MG TAB PO SCH (21:23)
[2017-01-16] VITALS (9 sets, daily range): BP systolic 115–143; BP diastolic 56–67; PULSE 53–59; RESP 16–18
[2017-01-16] MEDS: ACCU-CHEK XX SCH (02:22)
[2017-01-16] MEDS: CEFTRIAXONE 1 GM/50 ML (PMX) 50 ML IVPB SCH (06:34)
[2017-01-16] MEDS: SALMETEROL/FLUTICASONE 250/50 INHA INH SCH (09:03)
[2017-01-16] MEDS: INSULIN ASPART [NOVOLOG] 3 ML PEN SC SCH ×3 (09:03→18:04)
[2017-01-16] MEDS: SPIRONOLACTONE 25 MG TAB PO SCH (09:10)
[2017-01-16] MEDS: ASPIRIN (EC) 81 MG TAB PO SCH (09:11)
[2017-01-16] MEDS: AMLODIPINE 10 MG TAB PO SCH (09:11)
[2017-01-16] MEDS: VENLAFAXINE (XR) 37.5 MG CAP PO SCH (09:11)
[2017-01-16] MEDS: FAMOTIDINE 20 MG TAB PO SCH (09:11)
[2017-01-16] MEDS: GUAIFENESIN/CODEINE 5ML CUP PO PRN (09:12)
[2017-01-16] MEDS: CLOPIDOGREL 75 MG TAB PO SCH (09:12)
[2017-01-16] MEDS: AZITHROMYCIN 250 MG TAB PO SCH (09:12)
[2017-01-16] MEDS: ALBUTEROL/IPRATROPIUM (NEB) 3 ML AMP HHN PRN (09:42)
--- NOTE | 2017-01-16 10:54 | CONS ---
Date/Time of Note Date/Time of Note DATE: 01/16/17 TIME: 10:52 Assessment/Plan Assessment/Plan Additional Assessment/Plan Assessment and recommendations; 1. Patient admitted with acute bronchitis with occasional wheezing. 2. Left upper lobe lung mass, diagnosed 5 years ago status post biopsy with a diagnosis of hematoma. 3. Currently no evidence of any post obstructive pneumonia. 4. Diabetes. Continue current treatment. Change DuoNeb to 4 times daily scheduled from as needed dosing. Consultation Date/Type/Reason Admit Date/Time Jan 14, 2017 at 16:11 Initial Consult Date Type of Consultation: Pulmonary 24 HR Interval Summary Free Text/Dictation Patient condition is stable. Still complains of shortness of breath with wheezing off and on. Denies any fever chills, chest pain. General exam; middle-aged woman, awake alert currently in no distress. Laying flat in bed. Exam/Review of Systems Vital Signs Vitals Vital Signs Date Time Temp Pulse Resp B/P Pulse Ox O2 Delivery O2 Flow Rate FiO2 01/16/17 09:42 59 20 96 Nasal Cannula 2.0 01/16/17 08:06 97.9 143/67 01/14/17 15:40 35 Intake and Output 01/15/17 01/15/17 01/16/17 15:00 23:00 07:00 Intake Total 600 ml Balance 600 ml Exam HEENT exam; supple neck, no JVD. No lymphadenopathy. Midline trachea. No thyromegaly. Chest exam; diminished but clear breath sounds bilaterally. S1-S2 audible, no murmurs. Regular rhythm. Abdomen exam; soft, no organomegaly. Bowel sounds audible. Extremity exam; no peripheral edema. No clubbing. Pulses 1+ bilaterally. SPECIAL NEEDS TUTOR exam; no focal deficit. Results Result Diagram: 01/15/17 0632 01/15/17 0633 Results 24 hrs Laboratory Tests Test 01/15/17 12:08 01/15/17 17:00 01/15/17 21:12 01/16/17 02:20 Bedside Glucose 267 H 242 H 217 153 Test 01/16/17 08:49 Bedside Glucose 140 Medications Medications Current Medications Ondansetron HCl (Zofran Inj) 4 mg Q6H PRN IV NAUSEA AND/OR VOMITING; Start at 19:30 Acetaminophen (Tylenol Tab) 650 mg Q6H PRN PO PAIN LEVEL 1-3 OR FEVER Last administered on 01/16/17 09:12; Admin Dose 650 MG; Start 01/14/17 at 19:30 Acetaminophen/ Hydrocodone Bitart ([place] (5/325)) 1 tab Q6H PRN PO MODERATE PAIN LEVEL 4-6 Last administered on 01/15/17 17:36; Admin Dose 1 TAB; Start at 19:30 Morphine Sulfate (morphine) 2 mg Q4H PRN IV SEVERE PAIN LEVEL 7-10 Last administered on 01/15/17 17:39; Admin Dose 2 MG; Start 01/14/17 at 19:30 Docusate Sodium (Colace) 100 mg Q12H PRN PO CONSTIPATION Last administered on 09:41; Admin Dose 100 MG; Start 01/14/17 at 19:30 Zolpidem Tartrate (Ambien) 5 mg QHS PRN PO SLEEP Last administered on 22:07; Admin Dose 5 MG; Start 01/14/17 at 19:30 Amlodipine Besylate (Norvasc) 10 mg DAILY PO Last administered on 01/16/17 09: 11; Admin Dose 10 MG; Start 01/15/17 at 09:00 Aspirin (Halfprin) 81 mg DAILY PO Last administered on 01/16/17 09:11; Admin Dose 81 MG; Start 01/15/17 at 09:00 Carvedilol (Coreg) 25 mg BID PO Last administered on 01/15/17 21:23; Admin Dose 25 MG; Start 01/14/17 at 21:00 Clopidogrel Bisulfate (plaVIX) 75 mg DAILY PO Last administered on 01/16/17 09 :12; Admin Dose 75 MG; Start 01/15/17 at 09:00 Cyclobenzaprine HCl (Flexeril) 10 mg Q8 PRN PO MUSCLE SPASMS Last administered on 01/14/17 22:07; Admin Dose 10 MG; Start 01/14/17 at 20:30 Insulin Glargine (Lantus) 40 unit QHS SC Last administered on 01/15/17 21:23; Admin Dose 40 UNIT; Start 01/14/17 at 21:00 Meclizine HCl (Antivert) 25 mg BID PRN PO DIZZINESS; Start 01/14/17 at 20:30 Montelukast Sodium (Singulair) 10 mg QHS PO Last administered on 01/15/17 21: 23; Admin Dose 10 MG; Start 01/14/17 at 21:00 Salmeterol Xinafoate/ Fluticasone (Advair 250/50 Diskus) 1 inh BID INH Last administered on 01/16/17 09:03; Admin Dose 1 INH; Start 01/14/17 at 21:00 Spironolactone (Aldactone) 25 mg DAILY PO Last administered on 01/16/17 09:10 ; Admin Dose 25 MG; Start 01/15/17 at 09:00 Venlafaxine HCl (Effexor Xr) 37.5 mg DAILY PO Last administered on 01/16/17 09 :11; Admin Dose 37.5 MG; Start 01/15/17 at 09:00 Famotidine (Pepcid) 20 mg DAILY PO Last administered on 01/16/17 09:11; Admin Dose 20 MG; Start 01/15/17 at 09:00 Diagnostic Test (Pha) (Accu-Chek) 1 ea 02 XX Last administered on 01/16/17 02: 22; Admin Dose 1 EA; Start 01/15/17 at 02:00 Guaifenesin/ Codeine Phosphate (Robitussin Ac Liquid Cup) 10 ml Q4H PRN PO COUGH Last administered on 01/16/17 09:12; Admin Dose 10 ML; Start 01/14/17 at 21:00 Miscellaneous Information 1 ea NOTE XX ; Start 01/14/17 at 21:00 Glucose (Glutose) 15 gm Q15M PRN PO DECREASED GLUCOSE; Start 01/14/17 at 21:00 Glucose (Glutose) 22.5 gm Q15M PRN PO DECREASED GLUCOSE; Start 01/14/17 at 21: 00 Dextrose (D50w Syringe) 25 ml Q15M PRN IV DECREASED GLUCOSE; Start 01/14/17 at 21:00 Dextrose (D50w Syringe) 50 ml Q15M PRN IV DECREASED GLUCOSE; Start 01/14/17 at 21:00 Glucagon (Glucagen) 1 mg Q15M PRN IM DECREASED GLUCOSE; Start 01/14/17 at 21:00 Glucose (Glutose) 15 gm Q15M PRN BUCCAL DECREASED GLUCOSE; Start 01/14/17 at 21 :00 Azithromycin 250 mg 250 mg DAILY PO Last administered on 01/16/17 09:12; Admin Dose 250 MG; Start 01/14/17 at 21:00 Ceftriaxone Sodium (Rocephin) 50 ml @ 100 mls/hr Q24H IVPB Last administered on 01/16/17 06:34; Admin Dose 100 MLS/HR; Start 01/15/17 at 06:00 URMILA HICKS Jan 16, 2017 10:54
--- NOTE | 2017-01-16 13:54 | PDOCDIS ---
Discharge Instructions CONDITION Patient Condition: Good HOME CARE INSTRUCTIONS: Diet Instructions: RegularSpecial Diet: regular/no sweets FOLLOW UP/APPOINTMENTS Follow-up Plan Follow up with your lung doctor at [facility] to discuss further management of the lung mass which is causing your cough MICAH THOMPSON MD Jan 16, 2017 13:54
--- NOTE | 2017-01-16 13:59 | DS ---
Date/Time of Note Date/Time of Note DATE: 01/16/17 TIME: 13:57 Discharge Summary Admission/Discharge Info Admit Date/Time Jan 14, 2017 at 16:11 Discharge Date/Time Discharge Diagnosis Lung mass, previously diagnosed as hamartoma Patient Condition: Good Consults Pulmonary Procedures Na Hx of Present Illness This is a 61-year-old female with a history of CAD with stent, asthma/COPD, diabetes, hypertension and CHF who presented to the emergency department complaining of cough and shortness of breath of 3 days duration. Cough is productive of whitish sputum which makes the shortness of breath worse. She also reported wheezing. Denied fever chills nausea vomiting or chest pain. Denied sick contacts or recent travel. Patient was last admitted here for asthma/COPD exacerbation in July of this year but she left AMA. When she presented to the ER today, vitals were stable and except glucose of around 320, basic labs were also stable. CXR showed Similar appearance of the round 4.5 cm opacity within the left lung adjacent to the hilum. CT chest shows left upper lobe 4.3 x 3.9 cm nonenhancing mass and tree-in-bud nodules distal to the mass. According to radiology findings are suggestive of fungal infection. She was treated with bronchodilators and steroids while in the ER. Patient does have audible wheezing even without using a stethoscope. . 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 Per discussion with the patient and family, it was determined she has already been worked up for this at [facility] and is s/p biopsy revealing a hamartoma. She was encouraged to follow up with her bilingual sales assistant there for further management. Home Meds Reported Medications Amlodipine Besylate* (Amlodipine Besylate*) 10 Mg Tablet, 10 MG PO DAILY, #30 TAB 01/14/17 Celecoxib* (Celebrex*) 200 Mg Capsule, 200 MG PO DAILY, CAP 01/14/17 Fenofibrate, Micronized (Fenofibrate) 134 Mg Capsule, 134 MG PO DAILY, CAP 01/14/17 Ranitidine Hcl* (Ranitidine Hcl*) 150 Mg Tablet, 150 MG PO Q12, #60 TAB 01/14/17 Aspirin (Low Dose Aspirin) 81 Mg Tablet.dr, 81 MG PO DAILY, #30 TAB 01/14/17 Losartan-Hydrochlorothiazide (Losartan-HCTZ) 100-25 Mg Tab, 1 TAB PO DAILY, TAB 01/14/17 Atorvastatin* (Atorvastatin*) 40 Mg Tablet, 40 MG PO QHS, #30 TAB 01/14/17 Salmeterol Xinaf/Fluticasone* (Advair*) 250-50 Diskus Inhaler, 1 INH INHALATION BID, #1 INHALER 01/14/17 Cyclobenzaprine Hcl* (Cyclobenzaprine Hcl*) 10 Mg Tablet, 10 MG PO Q8 Y for MUSCLE SPASMS, #60 TAB 01/14/17 Temazepam* (Temazepam*) 15 Mg Capsule, 15 MG PO HS Y for INSOMNIA, CAP 01/14/17 Montelukast Sodium* (Singulair*) 10 Mg Tablet, 10 MG PO QHS, #30 TAB 01/14/17 Ergocalciferol (Vitamin D2) (VITAMIN D2) 50,000 Unit Capsule, 36655 UNIT PO EVERY SUNDAY, CAP 01/14/17 Meclizine Hcl* (Meclizine Hcl*) 25 Mg Tablet, 25 MG PO BID Y for DIZZINESS, TAB 01/14/17 Venlafaxine Hcl* (Venlafaxine Hcl ER*) 37.5 Mg Cap.er.24h, 37.5 MG PO DAILY, CAP 01/14/17 Azithromycin* (Azithromycin*) 250 Mg Tablet, 250 MG PO DAILY, #4 TAB started 01-11-17 for 5 days 01/14/17 Albuterol Sulfate* (Ventolin HFA*) 18 Gm Hfa.aer.ad, 2 PUFF INHALATION Q6H, #1 INHALER 08/12/16 Insulin Glargine* (Lantus*) 100 Unit/Ml Soln, 40 UNIT SC QHS, #1 VIAL 08/12/16 Glimepiride* (Amaryl*) 4 Mg Tablet, 4 MG PO WITH BREAKFAST DINNE, TAB 08/12/16 Metformin Hcl* (Metformin Hcl*) 1,000 Mg Tablet, 1000 MG PO WITH BREAKFAST DINNE , #60 TAB 08/12/16 Sitagliptin* (Januvia*) 100 Mg Tablet, 100 MG PO DAILY, #30 TAB 08/12/16 Clopidogrel Bisulfate (Clopidogrel) 75 Mg Tablet, 75 MG PO DAILY, #30 TAB 08/12/16 Carvedilol* (Carvedilol*) 25 Mg Tablet, 25 MG PO BID, #60 TAB 08/12/16 Spironolactone* (Aldactone*) 25 Mg Tablet, 25 MG PO DAILY, #30 TAB 08/12/16 Discontinued Reported Medications Albuterol Sulfate* (Albuterol Sulfate* Neb) 0.083%-3 Ml Neb, 2.5 MG NEB Q3H Y for WHEEZING AND SOB, #30 VIAL 08/12/16 Meclizine Hcl* (Meclizine Hcl*) 25 Mg Tablet, 25 MG PO DAILY Y for DIZZINESS, TAB 08/12/16 Primary Care Provider Hayde Rogers Time spent on discharge: < 30 minutes Pending Labs Laboratory Tests Test 01/15/17 17:00 01/15/17 21:12 01/16/17 02:20 01/16/17 08:49 Bedside Glucose 242mg/dL (70-220) 217mg/dL (70-220) 153mg/dL (70-220) 140mg/dL (70-220) Test 01/16/17 12:44 Bedside Glucose 152mg/dL (70-220) MICAH THOMPSON MD Jan 16, 2017 13:59
[2017-01-16] MEDS ORDERED: ALBUTEROL/IPRATROPIUM (NEB) 3 ML AMP HHN SCH (14:00)
== END 2017-01-16 18:20 | disposition home or self-care (01) | DRG 192 ==
LOC: E/R 13:06 → MS4 16:11
PROVIDERS: ADMIT Internal Medicine; ATTEND Internal Medicine
DX: J44.0 Chronic obstructive pulmonary disease with (acute) lower respiratory infection (principal); E11.65 Type 2 diabetes mellitus with hyperglycemia; I10 Essential (primary) hypertension; J20.9 Acute bronchitis, unspecified; J44.1 Chronic obstructive pulmonary disease with (acute) exacerbation; I25.10 Atherosclerotic heart disease of native coronary artery without angina pectoris; D14.32 Benign neoplasm of left bronchus and lung; Z95.5 Presence of coronary angioplasty implant and graft
CPT/HCPCS: 36415; 71010; 71270; 80048; 80061; 82550; 82553; 82962; 83036; 83735; 83880; 84100; 84484; 85025; 85610; 85730; 86635; 86698; 93005; 94640; 94644; 94660; 94664; 96374; J0696; J1815; J2270; J2930; Q9967

== ENCOUNTER → 2018-08-15 | Day surgery (SDC) | payer OTHER ==
[~2018-08-15] VITALS: Ht 152.4 cm; Wt 81.3 kg
[2018-08-15] VITALS (24 sets, daily range): BP systolic 129–170; BP diastolic 64–82; PULSE 60–74; RESP 16–24
[~2018-08-15] MED LIST changes: +ACETAMINOPHEN 325 MG TAB PO PRN; +ADENOSINE 90 MG INJ ONE; +ADV25050 INHALATION; +AL HYDROX/MG HYDROX/SIMETH 30 ML CUP PO PRN; -ALBU2.5V3 NEB; +AMLO-147 PO; +ASPI81TA52 PO; +ATOR40TA68 PO; +CELE200C PO; +CYCL10TA7 PO; +DIAZEPAM 5 MG TAB PO SCH; +DIPHENHYDRAMINE 50 MG CAP PO SCH; +ERGO500013 PO; +FAMOTIDINE 20 MG TAB PO SCH; +FENO134C PO; +FENTAnyl 50 MCG/ML VIAL ONE; +FLUT16SP17 NASAL; +HEPARIN 1000 UNITS/ML 10 ML INJ ONE; +IODIXANOL LOCM 100 ML BTL ONE; +LIDOCAINE 1% (MDV) 20 ML INJ ONE; +LOSA1TAB25 PO; -METF1000 PO; +METF100010 PO; +MIDAZOLAM 1 MG/ML 2 ML INJ ONE; +MONT10TA21 PO; +NAPR-685 PO; +NITR0.4T39 SL; +NITROGLYCERIN (IC) 100 MCG/ML INJ ONE; +ONDANSETRON 4 MG INJ IV PRN; +RANI150T35 PO; +RANI150T5 PO; +SITA100T11 PO; -SITA100T8 PO; +SOD CHLORIDE 0.45% 1,000 ML IV SCH; +SOD CHLORIDE 0.9% 1,000 ML IV SCH; +SOD CHLORIDE 0.9% 500 ML ONE; +TEMA15CA PO; +VENL-42 PO; +VENL37.59 PO; +VERAPAMIL 5 MG INJ ONE; +morphine 2 MG INJ IV PRN
--- NOTE | 2018-08-15 10:23 | SIPON ---
Date/Time of Note Date/Time of Note DATE: 08/15/18 TIME: 10:22 Operative Report Preoperative Diagnosis 1.Chest pain 2.abnl mpi Postoperative Diagnosis 1.non-obstructive cad 2.Patent LAD stents Operation/Procedure Performed 1.C 2.FFR LAD Surgeon see signature line escrow assistant 1.Jair Anesthesia: moderate sedation Estimated blood loss: minimal Transfusion Required none Specimen none Grafts/Implants none Complications none PORFIRIO RICHARDS Aug 15, 2018 10:23
--- NOTE | 2018-08-15 14:30 | CARRPT ---
DATE OF PROCEDURE: 08/15/2018 TYPE OF PROCEDURES: 1. Left heart catheterization. 2. Coronary angiography. 3. FFR performed in the right coronary artery. 4. Left ventriculogram. 5. Moderate conscious sedation. ATTENDING PHYSICIAN: Porfirio Gant MD REFERRING PHYSICIAN: Memo Velazquez MD TYPE OF ANESTHESIA: Conscious local. INDICATION: Chest pain, positive stress test findings for inferolateral ischemia. BRIEF HISTORY: Ms. Alvarez is a 62-year-old female with history of hypertension, dyslipidemia, prio r PTCA and stent placement to LAD in 2003, who presented with complaints of substernal chest pain and subsequent cardiac stress test revealing positive inferolateral defect, now has been referred for an d presents today in order to undergo left heart catheterization to assess for possibly significant ob structive coronary artery disease lending to symptoms of chest pain and subsequent positive stress te st. DESCRIPTION OF PROCEDURE: After informed consent was obtained, the patient was brought to the [facility] cardiac catheterization lab where right radial wrist was prepped and draped in sterile fashion. A 2% lidocaine was infiltrated into the right radial area in order to achieve adeq uate anesthesia. Using the modified Seldinger technique, the right radial artery was cannulated and a 6-[place] arterial sheath was placed. A 6-[place] JL3.5 catheter was used to cannulate the left main coronary ostium. With contrast injection, multiple views of left coronary system were obtained. JL 3.5 was removed over guidewire and a JR4 was used to cannulate the right coronary arterial ostium. W ith contrast injection, multiple views of right coronary system were obtained. JL4 was removed over guidewire and a 6-[place] pigtail was passed down the ascending aorta and placed in the LV. LVEDP was measured. A 20 mL of contrast were injected by power injector and pulled back across the aortic lazaro ve to assess for significant gradient, which was not and removed. Subsequently at this time, we move d directly into an interventional procedure. The patient already received 5000 units of heparin with her radial cocktail. A JR4 guide was used to cannulate the right coronary arterial ostium. A press ure guidewire was passed distal to the lesion and the patient had IFR performed and then followed by FFR with the IFR result returning at 0.95 not consistent with flow-limiting and FFR after adenosine a t 140 mcg/kg per minute x3 minutes to reach hyperemia had result of 0.7 above the cutoff for flow-harkins iting lesion. Subsequently at this time, the patient's initial guide and guidewires were removed. T he patient's sheath was removed. TR band was applied. This completed the procedure. There were no noted complications. FINDINGS: Coronary angiography: Left main is 4 mm, no significant focal stenoses. LAD proximally i s a 3 mm vessel and in its midportion has a long stented zone in 1 area not stented and then the sten lance in the very distal portion of the LAD with very minimal to no in-stent restenosis and in the inne r zone between the stents approximately 30% stenosis. There is diagonal that bifurcates proximally i n the LAD 2 mm with a tubular 50% stenosis in distal portion diagonal with a sub 2 mm vessel. The ci rcumflex proximally is a 3 mm vessel and has no significant focal stenoses in its proximal portion. Remainder of the circumflex has no significant focal stenoses. There is a proximal branching obtuse marginal 2.5 mm with no significant focal stenoses and distal branching obtuse marginal is 2 mm with no significant focal stenoses. Additionally, there is a very small left-sided PDA sub 2 mm and a sma ll left-sided posterolateral branch sub 2 mm with no significant focal stenoses. The patient's right coronary artery proximally is a 3 mm vessel and in its mid portion has a 50% to 60% stenosis. The r emainder of the right coronary is free from significant focal stenoses and is a codominant vessel and therefore gives off a 2 mm PDA and a 2 mm posterolateral branch each with no significant focal steno ses. Left ventriculogram revealed a left ventricular ejection fraction approximately 55%, left ventricular end diastolic pressure of 21 pre-LV gram, 20 post-LV gram, 1+ mitral regurgitation, no significant a ortic stenosis by gradient. FFR and IFR were performed in the patient's right coronary artery and again a result of 0.95 of IFR a nd 0.87 of FFR both above the level for cutoff for flow-limiting lesion. TOTAL FLUOROSCOPY TIME: 6.29 minutes. TOTAL CONTRAST: 140 mL. IMPRESSION: 1. Moderate nonobstructive coronary artery disease with intermediate lesion in the patient's right c oronary artery with nonsignificant IFR and FFR. 2. Widely patent long stented zones in the patient's LAD with no significant in-stent restenosis. 3. Preserved left ventricular systolic function. 4. No significant aortic stenosis by gradient. RECOMMENDATIONS: In light of procedure findings at this time, we would: 1. Maximize medical management. 2. Aggressive risk factor reduction. 3. The patient will be readmitted to the same-day surgery for post-catheterization observation and c ontinued management of symptoms with probable discharge later this afternoon. Dictated By: PORFIRIO AMIN/RAAD Conf#: [id number] DID#: [id number] CC: MEMO VELAZQUEZ MD;*EndCC*
== END | disposition home or self-care (01) ==
LOC: SDS 07:16
PROVIDERS: ATTEND Internal Medicine
DX: I25.10 Atherosclerotic heart disease of native coronary artery without angina pectoris (principal); I10 Essential (primary) hypertension; E78.5 Hyperlipidemia, unspecified; E11.9 Type 2 diabetes mellitus without complications
CPT/HCPCS: 71045; 80048; 80061; 82962; 85025; 85610; 85730; 93005; 93458; 93571; C1887; J1644; J2250; J3010; J7040; Q9967; Z7610; J0153